=== PATIENT | female | born 1965 | race Caucasian/White ===

== ENCOUNTER → 2016-09-03 14:06 | Outpatient (CLI) | payer OTHER | END | disposition home or self-care (01) | LOC: D.MAMMO 11:15 | DX: Z12.31 Encounter for screening mammogram for malignant neoplasm of breast (principal) ==

== ENCOUNTER → 2018-02-11 19:13 | Outpatient (CLI) | payer OTHER | END | disposition home or self-care (01) | LOC: D.MAMMO 10:15 | DX: Z12.31 Encounter for screening mammogram for malignant neoplasm of breast (principal) ==

== ENCOUNTER 2019-03-04 09:00 | Outpatient (CLI) | payer OTHER | END 2019-03-04 10:00 | disposition home or self-care (01) | LOC: D.MAMMO 09:00 | PROVIDERS: ATTEND Family Medicine | DX: Z12.31 Encounter for screening mammogram for malignant neoplasm of breast (principal) ==

== ENCOUNTER 2019-04-13 19:00 | Outpatient (CLI) | payer OTHER | END 2019-04-13 23:59 | disposition home or self-care (01) | LOC: D.MAMMO 19:00 | PROVIDERS: ATTEND Family Medicine | DX: R92.8 Other abnormal and inconclusive findings on diagnostic imaging of breast (principal) ==